=== PATIENT | female | born 1990 | race Asian ===

== ENCOUNTER 2017-02-11 17:24 | Emergency (ER) | payer MEDICAID, OTHER ==
[2017-02-11 17:27] VITALS: BP 102/70; PULSE 87; RESP 16; TEMP 98.2; O2SAT 98
[2017-02-11] MEDS ORDERED: ROBA750T PO (17:58)
--- NOTE | 2017-02-11 17:58 | PD ---
HPI Chief Complaint: Musculoskeletal Complaint Time Seen by Provider: 17:30 Travel History International Travel<30 days: No Contact w/Intl Traveler<30days: No Traveled to known affect area: No History of Present Illness HPI 26 year-old female presents to the emergency room for evaluation of neck strain for the past 2 days. Patient states she woke up with a crick in her neck 2 days ago. It seemed to be improving on its own until a few hours ago when a loud thunderous clap startled her, causing her to jerk her neck. She heard a pop and then felt pain localized to the right paraspinous musculature and into the right posterior shoulder. Pain is worse with any range of motion of the shoulder or neck. Took Aleve and applied an [id number] pain patch with moderate relief in symptoms. Patient denies paresthesias. She tried to go to her primary care physician and that an urgent care center but her PCP was closed and the urgent care center did not accept her insurance. There is no direct trauma or injury to the neck. She has history of kyphosis and cervical spine. Denies chronic medical conditions or daily medications. History Past Medical Histgory Tetanus Vaccination: Unknown LMP: 01/21/17 Hx Chemotherapy: No Past Surgical History Surgical History: No Previous Surgery Social History Alcohol Use: No Tobacco Use: No Allergies-Medications (Allergen,Severity, Reaction): Coded Allergies: No Known Allergies (Verified , 02/11/17) Reported Meds & Prescriptions Reported Meds & Active Scripts Active Robaxin (Methocarbamol) 750 Mg Tab 750 Mg PO Q8HR Review of Systems Except as stated in HPI: all other systems reviewed are Neg Physical Exam Narrative GENERAL: Well-nourished, well-developed female in no acute distress. Afebrile. Ambulatory. SKIN: Focused skin assessment warm/dry. HEAD: Normocephalic. EYES: No scleral icterus. No injection or drainage. NECK: Supple, trachea midline. No JVD or lymphadenopathy. Limited range of motion secondary to pain. No midline tenderness of the spine. CARDIOVASCULAR: Regular rate and rhythm without murmurs, gallops, or rubs. RESPIRATORY: Breath sounds equal bilaterally. No accessory muscle use. EXTREMITY: Right shoulder mildly tender to palpation over the trapezius muscle. Full range of motion in all joints. No edema. 2+ radial pulse. Radial , ulnar, and median nerves intact. Data Data Last Documented VS Vital Signs Date Time Temp Pulse Resp B/P Pulse Ox O2 Delivery O2 Flow Rate FiO2 02/11/17 17:27 98.2 87 16 102/70 98 MDM Medical Screen Exam Complete: Yes Emergency Medical Condition: No Differential Diagnosis Muscle spasm versus cervical strain versus fracture unlikely Narrative Course 26-year-old female presents to the emergency room for evaluation of right-sided neck and upper shoulder pain after sleeping on her neck wrong 2 days ago. She states it seems to be spontaneously resolving until she jerked her neck a little earlier today. There is no trauma or injury. There are no focal neurological deficits. Strength 5/5 and equal in upper extremities. Right upper extremity is neurovascularly intact. No midline tenderness of the spine. She has tenderness to palpation of the right-sided trapezius muscle. There are no urgent or emergent medical conditions at this time. A medical screening exam was performed: At the time of evaluation the presenting medical condition was determined not to be of an emergent nature. The patient was given the option of receiving additional care, such as prescription for Robaxin, and decided to stay. Primary Impression: Muscle spasm Referrals: Primary Care Physician Patient Instructions: Cervical Strain (ED), General Instructions, Muscle Spasm (ED) Additional Instructions: Rest and drink plenty of fluids. Take Robaxin as directed, as needed for pain. Take ibuprofen with food as directed, as needed for pain. Apply ice to the affected area for 20 minutes at a time, as needed for pain and swelling. Follow-up with a primary care physician. Return to the emergency room for worsening symptoms. Med/Other Pt SpecificInfo: Prescription(s) given Scripts Methocarbamol (Robaxin)750 Mg Aym632 Mg PO Q8HR #15 TAB Ref 0 Prov:Zack Boothe MD 02/11/17 Disposition: 01 DISCHARGE HOME Condition: Stable Hope Romano Feb 11, 2017 17:58
== END 2017-02-11 18:00 | disposition home or self-care (01) ==
LOC: PHEFT 17:24
DX: M62.838 Other muscle spasm (principal); M54.2 Cervicalgia
CPT/HCPCS: 99283

== ENCOUNTER 2018-01-04 18:34 | Emergency (ER) | payer OTHER ==
[~2018-01-04] VITALS: Ht 154.9 cm; Wt 68.0 kg
[~2018-01-04 18:34] MED LIST: ALEV220T14 PO
[2018-01-04 18:45] VITALS: BP 108/63; PULSE 105; RESP 20; TEMP 99.1; O2SAT 99
--- NOTE | 2018-01-04 20:11 | PD ---
HPI Chief Complaint: Back/ Neck Pain or Injury Time Seen by Provider: 20:11 Travel History International Travel<30 days: No Contact w/Intl Traveler<30days: No Traveled to known affect area: No History of Present Illness HPI 27-year-old female with no significant medical history presents emergency department for evaluation of low back pain that began on Friday, 2 days ago, with no preceding injury. Pain is severe in nature, constant, aching. Patient states the pain has progressed to her hips and now down her bilateral lower extremities. She states that she has been unable to ambulate without a cane. She tells me that her legs are intermittently numb. They are weak. Patient denies any loss of bowel or bladder. Denies any recent illnesses, fever, chills. Denies IV drug use. Patient has no other symptoms to report. PFSH Past Medical History Medical History: Denies Significant Hx Hx Anticoagulant Therapy: No Cardiovascular Problems: No Chemotherapy: No Cerebrovascular Accident: No Diabetes: No Fibromyalgia: Yes Musculoskeletal: Yes (Kyphosis) Respiratory: No ?: Not LMP: 12/10/17 Past Surgical History Hysterectomy: No Social History Alcohol Use: No Tobacco Use: No Substance Use: No Allergies-Medications (Allergen,Severity, Reaction): Coded Allergies: No Known Allergies (Verified Allergy, Unknown, 01/04/18) Reported Meds & Prescriptions Reported Meds & Active Scripts Active Naproxen 500 Mg Tab 500 Mg PO BID PRN [place] (Hydrocodone-Acetaminophen) 5 Mg-325 Mg Tab 1 Tab PO Q6H PRN Medrol Dosepak (Methylprednisolone) 4 Mg Dspk 4 Mg PO DIRECTED Per Pharmacist direction Reported Aleve Arthritis (Naproxen Sodium) 220 Mg Tab 220 Mg PO BID Review of Systems Except as stated in HPI: all other systems reviewed are Neg Physical Exam Narrative GENERAL: Well-nourished female patient ambulatory with an ataxic gait. Patient' s walking is not coordinated well. SKIN: Focused skin assessment warm/dry. HEAD: Atraumatic. Normocephalic. EYES: Pupils equal and round. No scleral icterus. No injection or drainage. ENT: No nasal bleeding or discharge. Mucous membranes pink and moist. NECK: Trachea midline. No JVD. CARDIOVASCULAR: Regular rate and rhythm. No murmur appreciated. RESPIRATORY: No accessory muscle use. Clear to auscultation. Breath sounds equal bilaterally. GASTROINTESTINAL: Abdomen soft, non-tender, nondistended. Hepatic and splenic margins not palpable. MUSCULOSKELETAL: No obvious deformities. No clubbing. No cyanosis. No edema. Midline lumbar tenderness. 2 out of 5 strength bilateral lower extremities. Patient has to physically pick her legs up to put them in the bed. No hyperreflexia. No clonus. Patient can flex and extend at the ankles. Downward facing Babinski. NEUROLOGICAL: Awake and alert. No obvious cranial nerve deficits. Motor grossly within normal limits. Normal speech. PSYCHIATRIC: Appropriate mood and affect; insight and judgment normal. Data Data Last Documented VS Vital Signs Date Time Temp Pulse Resp B/P (MAP) Pulse Ox O2 Delivery O2 Flow Rate FiO2 01/04/18 22:39 01/04/18 22:03 85 16 99 Room Air 01/04/18 18:45 99.1 Orders Orders Iv Access Insert/Monitor (01/04/18 20:18) Mri C Spine W/O Contrast (01/04/18 ) Mri T Spine W/O Contrast (01/04/18 ) Mri L Spine W/O Contrast (01/04/18 ) Dexamethasone Inj (Decadron Inj) (01/04/18 20:30) Complete Blood Count With Diff (01/04/18 20:18) Basic Metabolic Panel (Bmp) (01/04/18 20:18) Coag Profile (01/04/18 20:18) Ed Discharge Order (01/04/18 22:22) Labs Laboratory Tests Test 01/04/18 20:30 White Blood Count 10.1 TH/MM3 Red Blood Count 5.21 MIL/MM3 Hemoglobin 16.0 GM/DL Hematocrit 46.2 % Mean Corpuscular Volume 88.6 FL Mean Corpuscular Hemoglobin 30.7 PG Mean Corpuscular Hemoglobin Concent 34.6 % Red Cell Distribution Width 12.9 % Platelet Count 268 TH/MM3 Mean Platelet Volume 8.9 FL Neutrophils (%) (Auto) 60.5 % Lymphocytes (%) (Auto) 29.8 % Monocytes (%) (Auto) 5.7 % Eosinophils (%) (Auto) 3.1 % Basophils (%) (Auto) 0.9 % Neutrophils # (Auto) 6.1 TH/MM3 Lymphocytes # (Auto) 3.0 TH/MM3 Monocytes # (Auto) 0.6 TH/MM3 Eosinophils # (Auto) 0.3 TH/MM3 Basophils # (Auto) 0.1 TH/MM3 CBC Comment AUTO DIFF Differential Comment AUTO DIFF CONFIRMED Prothrombin Time 9.7 SEC Prothromb Time International Ratio 1.0 RATIO Activated Partial Thromboplast Time 23.1 SEC Blood Urea Nitrogen 10 MG/DL Creatinine 0.81 MG/DL Random Glucose 96 MG/DL Calcium Level 10.1 MG/DL Sodium Level 138 MEQ/L Potassium Level 3.5 MEQ/L Chloride Level 103 MEQ/L Carbon Dioxide Level 25.3 MEQ/L Anion Gap 10 MEQ/L Estimat Glomerular Filtration Rate 84 ML/MIN [facility] Medical Decision Making Medical Screen Exam Complete: Yes Emergency Medical Condition: Yes Medical Record Reviewed: Yes Differential Diagnosis Radiculopathy versus abscess versus mass versus MS versus discogenic pain Narrative Course 27-year-old female presents emergency department for evaluation of low back pain , lower extremity weakness, uncoordinated gait. Patient appears without distress. She does have significant weakness in the bilateral lower extremities. She has to lift her legs into the bed. She does have lumbar spinal tenderness. Patient is given IV Decadron. I discussed patient with my attending physician. MRI of the cervical, thoracic, lumbar spine is ordered. Laboratory Tests Test 01/04/18 20:30 White Blood Count 10.1 TH/MM3 Red Blood Count 5.21 MIL/MM3 Hemoglobin 16.0 GM/DL Hematocrit 46.2 % Mean Corpuscular Volume 88.6 FL Mean Corpuscular Hemoglobin 30.7 PG Mean Corpuscular Hemoglobin Concent 34.6 % Red Cell Distribution Width 12.9 % Platelet Count 268 TH/MM3 Mean Platelet Volume 8.9 FL Neutrophils (%) (Auto) 60.5 % Lymphocytes (%) (Auto) 29.8 % Monocytes (%) (Auto) 5.7 % Eosinophils (%) (Auto) 3.1 % Basophils (%) (Auto) 0.9 % Neutrophils # (Auto) 6.1 TH/MM3 Lymphocytes # (Auto) 3.0 TH/MM3 Monocytes # (Auto) 0.6 TH/MM3 Eosinophils # (Auto) 0.3 TH/MM3 Basophils # (Auto) 0.1 TH/MM3 CBC Comment AUTO DIFF Differential Comment AUTO DIFF CONFIRMED Prothrombin Time 9.7 SEC Prothromb Time International Ratio 1.0 RATIO Activated Partial Thromboplast Time 23.1 SEC Blood Urea Nitrogen 10 MG/DL Creatinine 0.81 MG/DL Random Glucose 96 MG/DL Calcium Level 10.1 MG/DL Sodium Level 138 MEQ/L Potassium Level 3.5 MEQ/L Chloride Level 103 MEQ/L Carbon Dioxide Level 25.3 MEQ/L Anion Gap 10 MEQ/L Estimat Glomerular Filtration Rate 84 ML/MIN Last Impressions Thoracic Spine MRI 01/04/18 0000 Signed Impressions: Service Date/Time: Thursday, January 04, 2018 21:11 - CONCLUSION: 1. Mild dextroscoliosis of the thoracic spine centered at T7. 2. Otherwise, unremarkable MRI examination of thoracic spine. Cooper Mckeon MD Lumbar Spine MRI 01/04/18 0000 Signed Impressions: Service Date/Time: Thursday, January 04, 2018 21:11 - CONCLUSION: 1. 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 2. Disc desiccation with diffuse disc bulge and posterior central disc protrusion at L5-6 with resultant moderate central canal narrowing to 6 mm. 3. No significant or foraminal stenosis. Cooper Mckeon MD Cervical Spine MRI 01/04/18 0000 Signed Impressions: Service Date/Time: Thursday, January 04, 2018 21:11 - CONCLUSION: 1. Mild diffuse disc bulge at C4-5, C5-6 and C6-7 with mild effacement of the anterior thecal sac most prominent at C4-5. Central canal measures 11 mm at this level. 2. No neural foraminal stenosis. Cooper Mckeon MD I have discussed the physical findings as well as the radiologic findings with Dr. Sena, neurosurgeon software configuration engineer. He recommends outpatient physical therapy and follow-up with neurosurgery outpatient. Plan is discussed with the patient. She agrees to return immediately with acute worsening symptoms. Diagnosis Primary Impression: Radicular low back pain Additional Impression: Abnormal gait Referrals: Primary Care Physician Patient Instructions: General Instructions, Lower Back Exercises (ED), Lumbar Radiculopathy (ED) Departure Forms: Tests/Procedures, Work Release Enter return to work date: January 07, 2018 Additional Instructions: Avoid prolonged bedrest Avoid activity that exacerbates pain Follow-up with a primary care provider Outpatient physical therapy is recommended Outpatient follow-up with neurosurgery is recommended Return immediately with acute worsening symptoms Med/Other Pt SpecificInfo: Prescription(s) given Scripts Naproxen (Naproxen) 500 Mg Tab 500 MG PO BID Y for PAIN SCALE 1 TO 10, #30 TAB 0 Refills Prov: Priscilla Echevarria 01/04/18 Hydrocodone-Acetaminophen ([place]) 5 Mg-325 Mg Tab 1 TAB PO Q6H Y for PAIN GREATER THAN 6, #6 TAB 0 Refills Prov: Priscilla Echevarria 01/04/18 Methylprednisolone Dosepak (Medrol Dosepak) 4 Mg Dspk 4 MG PO DIRECTED, #1 DSPK 0 Refills Per Pharmacist direction Prov: Priscilla Echevarria 01/04/18 Disposition: 01 DISCHARGE HOME Condition: Stable Priscilla Echevarria Jan 04, 2018 20:11
[2018-01-04] MEDS ORDERED: DEXAMETHASONE SOD PHOS 4 MG/ML VIAL IV PUSH ONE (20:30)
[2018-01-04 21:27] LABS: BICARBONATE 25.3 MEQ/L (21.0-32.0); CALCIUM 10.1 MG/DL (8.5-10.1); CREATININE 0.81 MG/DL (0.50-1.00)
--- NOTE | 2018-01-04 21:37 | RADRPT ---
EXAM DATE/TIME: 01/04/2018 21:11 [facility] COMPARISON: CT PULMONARY ANGIOGRAM, June 24, 2015, 17:09. INDICATIONS : Extremity numbness. MEDICAL HISTORY : None. SURGICAL HISTORY : None. ENCOUNTER: Initial ACUITY: 1 day PAIN SCORE: 3/10 LOCATION: Bilateral lower extremities. TECHNIQUE: Multiplanar multisequence MRI of the thoracic spine was performed. FINDINGS: VERTEBRA: Normal vertebral body height. Homogeneous marrow signal. ALIGNMENT: Very mild dextroscoliosis of the thoracic spine centered at T7. Sagittal alignment is maintained. CORD: Normal position and configuration. T1-T2: Normal. T2-T3: The thecal sac has a normal diameter. No evidence of disc bulge or protrusion. T3-T4: The thecal sac has a normal diameter. No evidence of disc bulge or protrusion. T4-T5: The thecal sac has a normal diameter. No evidence of disc bulge or protrusion. T5-T6: The thecal sac has a normal diameter. No evidence of disc bulge or protrusion. T6-T7: The thecal sac has a normal diameter. No evidence of disc bulge or protrusion. T7-T8: The thecal sac has a normal diameter. No evidence of disc bulge or protrusion. T8-T9: The thecal sac has a normal diameter. No evidence of disc bulge or protrusion. T9-T10: The thecal sac has a normal diameter. No evidence of disc bulge or protrusion. T10-T11: The thecal sac has a normal diameter. No evidence of disc bulge or protrusion. T11-T12: The thecal sac has a normal diameter. No evidence of disc bulge or protrusion. T12-L1: The thecal sac has a normal diameter. No evidence of disc bulge or protrusion. CONCLUSION: 1. Mild dextroscoliosis of the thoracic spine centered at T7. 2. Otherwise, unremarkable MRI examination of thoracic spine. Cooper Mckeon MD on January 04, 2018 at 21:31 Board Certified Radiologist. This report was verified electronically.
[2018-01-04 21:40] LABS: AUTOMATED NEUTROPHIL # 6.1 TH/MM3 (1.8-7.7); BASOPHIL # 0.1 TH/MM3 (0-0.2); BASOPHIL % 0.9 % (0.0-2.0); EOSINOPHIL # 0.3 TH/MM3 (0-0.4); EOSINOPHIL % 3.1 % (0.0-4.0); HEMATOCRIT 46.2 % (35.0-46.0); LYMPH % 29.8 % (9.0-44.0); MEAN CELL VOLUME 88.6 FL (80.0-100.0); MEAN CORPUSCULAR HEMOGLOBIN 30.7 PG (27.0-34.0); MEAN CORPUSCULAR HGB CONC 34.6 % (32.0-36.0); MEAN PLATELET VOLUME 8.9 FL (7.0-11.0); MONO % 5.7 % (0.0-8.0); MONOCYTE # 0.6 TH/MM3 (0-0.9); NEUT % 60.5 % (16.0-70.0); PLATELET COUNT 268 TH/MM3 (150-450); RED BLOOD COUNT 5.21 MIL/MM3 (4.00-5.30); RED CELL DISTRIBUTION WIDTH 12.9 % (11.6-17.2); WHITE BLOOD COUNT 10.1 TH/MM3 (4.0-11.0)
[2018-01-04 21:42] LABS: PROTHROMBIN TIME - PATIENT 9.7 SEC (9.8-11.6)
--- NOTE | 2018-01-04 21:46 | RADRPT ---
EXAM DATE/TIME: 01/04/2018 21:11 [facility] COMPARISON: No previous studies available for comparison. INDICATIONS : Extremity numbness. MEDICAL HISTORY : None. SURGICAL HISTORY : None. ENCOUNTER: Initial ACUITY: 1 day PAIN SCORE: 3/10 LOCATION: Bilateral lower extremities. TECHNIQUE: Multiplanar, multisequence MRI examination of the cervical spine was performed. FINDINGS: VERTEBRAE: Normal vertebral body height. Homogeneous marrow signal. ALIGNMENT: No evidence of subluxation. CORD: Normal configuration and signal. POST FOSSA: The cerebellar tonsils are normal in position. C2-C3: The thecal sac has a normal configuration. There is no evidence of disc herniation or spinal canal s tenosis. The neural foramina are patent bilaterally. C3-C4: The thecal sac has a normal configuration. There is no evidence of disc herniation or spinal canal s tenosis. The neural foramina are patent bilaterally. C4-C5: Mild diffuse disc bulge with mild effacement of the anterior thecal sac. No significant neural forami nal stenosis. C5-C6: Mild diffuse disc bulge with mild effacement of the anterior thecal sac. No significant neural forami nal stenosis. C6-C7: Mild diffuse disc bulge with minimal effacement of the anterior thecal sac. No significant neural for aminal stenosis. C7-T1: The thecal sac has a normal configuration. There is no evidence of disc herniation or spinal canal s tenosis. The neural foramina are patent bilaterally. CONCLUSION: 1. Mild diffuse disc bulge at C4-5, C5-6 and C6-7 with mild effacement of the anterior thecal sac mos t prominent at C4-5. Central canal measures 11 mm at this level. 2. No neural foraminal stenosis. Cooper Mckeon MD on January 04, 2018 at 21:40 Board Certified Radiologist. This report was verified electronically.
[2018-01-04 22:03] VITALS: BP 107/54; PULSE 85; RESP 16; O2SAT 99
--- NOTE | 2018-01-04 22:06 | RADRPT ---
EXAM DATE/TIME: 01/04/2018 21:11 [facility] COMPARISON: No previous studies available for comparison. INDICATIONS : Extremity numbness. MEDICAL HISTORY : None. SURGICAL HISTORY : None. ENCOUNTER: Initial ACUITY: 1 day PAIN SCORE: 3/10 LOCATION: Bilateral lower extremities. TECHNIQUE: Multiplanar multisequence MRI of the lumbar spine was performed without contrast. FINDINGS: The most caudal appearing lumbar vertebra is numbered as L6. VERTEBRAE: Homogeneous signal. Mild levoscoliosis centered at L3. Size alignment is maintained. [place]US: Normal level and configuration. T12-L1: The thecal sac has a normal diameter. No evidence of disc bulge or protrusion. The neural foramina are patent bilaterally. L1-L2: The thecal sac has a normal diameter. No evidence of disc bulge or protrusion. The neural foramina are patent bilaterally. L2-L3: The thecal sac has a normal diameter. No evidence of disc bulge or protrusion. The neural foramina are patent bilaterally. L3-L4: The thecal sac has a normal diameter. No evidence of disc bulge or protrusion. The neural foramina are patent bilaterally. L4-L5: Mild bilateral facet arthropathy. No central canal or neural foraminal stenosis. L5-L6: Disc desiccation with diffuse disc bulge and posterior central disc protrusion. Mild bilateral facet arthropathy. Effacement of the thecal sac with central canal measuring 6 mm. Mild caudal left neural foraminal narrowing. L6-S1: The thecal sac has a normal diameter. No evidence of disc bulge or protrusion. The neural foramina are patent bilaterally. CONCLUSION: 1. 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 2. Disc desiccation with diffuse disc bulge and posterior central disc protrusion at L5-6 with result ant moderate central canal narrowing to 6 mm. 3. No significant or foraminal stenosis. Cooper Mckeon MD on January 04, 2018 at 21:59 Board Certified Radiologist. This report was verified electronically.
[2018-01-04] MEDS ORDERED: NAPR500T2 PO (22:26)
[2018-01-04] MEDS ORDERED: NORC5TAB PO (22:26)
[2018-01-04] MEDS ORDERED: MEDR4PAK PO (22:26)
== END 2018-01-04 22:50 | disposition home or self-care (01) ==
LOC: NEPD 18:34
DX: M54.5 Low back pain (principal); R26.9 Unspecified abnormalities of gait and mobility; M41.9 Scoliosis, unspecified; M79.7 Fibromyalgia; Z79.899 Other long term (current) drug therapy
CPT/HCPCS: 72141; 72146; 72148; 80048; 85025; 85610; 85730; 96374; 99284; J1100